=== PATIENT | male | born 1930 | race Caucasian/White ===

== ENCOUNTER 2017-10-23 09:34 | Day surgery (SDC) | payer MEDICARE, SELFPAY ==
[~2017-10-23] VITALS: Wt 90.0 kg
[~2017-10-23 09:34] MED LIST: ALBU3IS NEB; ALBU90OI INH; AMLO5 PO; ASPI81CH PO; AZIT250 PO; BENZ100A PO; BUDE6HFA INH; DULERA 200 MCG/13 GM INH; FISH1000 PO; FURO20 PO; HTN MED?; INHALER; LISI5; LUPRON DEPOT7.5 MG IM; MINO100 PO; MUPI2TC TOP; MUPIROCIN1 GM TOP; OMEP20ER PO; OMEPRAZOLE MAGN20 MG PO; PRED10 PO; Prednisone20 MG PO; Prednisone50 MG PO; Red Yeast Rice600 MG PO; TIOT18 INH; TRIA80TC TOP; Triamcinolone A15 G3 TOP; Ventolin Soln3 ML INH; XARELTO10 MG; XARELTO15 MG PO; XARELTO20 MG PO; Zithromax250 MG PO; [UNRECOGNIZED DRUG - REMARK]
--- NOTE | 2017-10-23 13:24 | NUR ---
REPORT RECEIVED FROM BETH MOODY. PT AWAKE, ALERT, SITTING UP IN RECLINER. NO RESPIRATORY DIFFICULTYNOTED. PT CONVERSING WITH STAFF AND . NO C/O PAIN OR DISCOMFORT. SIPPING ON WATER AT THIS TIME. DRESSING CDI, ICE PACK IN PLACE OVER PRESSURE DRESSING PER MD DIRECTION.
--- NOTE | 2017-10-23 15:23 | NUR ---
SUMMARY: PT AMBULATED IN HALLWAYS TO BATHROOM - TOLERATED ACTIVITY WELL. REVIEWED DISCHARGE INSTRUCTIONS WITH PATIENT AND , BOTH OF WHOM VERBALIZE UNDERSTANDING OF ALL INSTRUCTIONS GIVEN. IV D/C TIP INTACT. PRESSURE DRESSING REMOVED FROM CHEST WALL. NO BLEEDING OR SWELLING NOTED. EKG DONE AND ANTIBIOTIC INFUSED PER MD ORDERS. PT DISCHARGED HOME WITH TO DRIVE HIM.
[2017-11-06] MEDS ORDERED: Omeprazole20 M1 PO (15:05)
[2017-11-06] MEDS ORDERED: XARELTO15 MG PO (23:08)
[2017-11-07] MEDS ORDERED: AZIT250 PO (10:18)
[2017-11-07] MEDS ORDERED: BENZ100A PO (10:19)
[2017-11-07] MEDS ORDERED: PRED10 PO (10:20)
[2019-03-19] MEDS ORDERED: BREO ELLIPTA 21 EACH INH (12:27)
[2019-03-19] MEDS ORDERED: Zantac150 MG PO (12:58)
[2019-03-19] MEDS ORDERED: TAMS.4ER PO (13:01)
== END 2017-10-23 15:30 | disposition home or self-care (01) ==
LOC: MHTC 09:34 → SURS 09:39 → MHTC 09:39
PROC: 0JH606Z Insertion of Pacemaker, Dual Chamber into Chest Subcutaneous Tissue and Fascia, Open Approach (ICD-10-PCS; principal; 2017-10-23)
PROC: 0JPT0PZ Removal of Cardiac Rhythm Related Device from Trunk Subcutaneous Tissue and Fascia, Open Approach (ICD-10-PCS; principal; 2017-10-23)
DX: Z45.010 Encounter for checking and testing of cardiac pacemaker pulse generator [battery] (principal); I48.0 Paroxysmal atrial fibrillation; I35.0 Nonrheumatic aortic (valve) stenosis; I13.0 Hypertensive heart and chronic kidney disease with heart failure and stage 1 through stage 4 chronic kidney disease, or unspecified chronic kidney disease; I50.30 Unspecified diastolic (congestive) heart failure; N18.9 Chronic kidney disease, unspecified; I77.819 Aortic ectasia, unspecified site; I45.10 Unspecified right bundle-branch block; E78.5 Hyperlipidemia, unspecified; J44.9 Chronic obstructive pulmonary disease, unspecified; K21.9 Gastro-esophageal reflux disease without esophagitis; Z86.73 Personal history of transient ischemic attack (TIA), and cerebral infarction without residual deficits; Z79.01 Long term (current) use of anticoagulants; Z79.899 Other long term (current) drug therapy; Z87.891 Personal history of nicotine dependence; Z86.718 Personal history of other venous thrombosis and embolism; Z86.711 Personal history of pulmonary embolism; Z85.46 Personal history of malignant neoplasm of prostate; Z88.5 Allergy status to narcotic agent; I25.10 Atherosclerotic heart disease of native coronary artery without angina pectoris
CPT/HCPCS: 33228; 93005; 93010; 94640; 99152; 99153; C1785; J0690; J1644; J2250; J3010; J7030; J7040

== ENCOUNTER → 2017-12-19 | Outpatient (CLI) | payer MEDICARE, SELFPAY ==
[~2017-12-19] MED LIST changes: +ALBU3IS INH; -ALBU3IS NEB; +Omeprazole20 M1 PO; +TAMS.4ER PO
[2017-12-19 20:09] LABS: Prostate Specific Antigen 0.064 ng/mL (0.000-4.000)
== END | disposition home or self-care (01) ==
LOC: OLS 16:28
PROVIDERS: Urology
DX: C61 Malignant neoplasm of prostate (principal)
CPT/HCPCS: 36415; 84153

== ENCOUNTER → 2018-05-20 | Outpatient (CLI) | payer MEDICARE, SELFPAY ==
[2018-05-20 17:48] LABS: BASOPHILS ABSOLUTE AUTO 0.02 K/mm3 (0.00-0.23); BASOPHILS PERCENT AUTO 0 % (0-2); EOSINOPHILS ABSOLUTE AUTO 0.36 K/mm3 (0.00-0.68); EOSINOPHILS PERCENT AUTO 4 % (0-6); Hematocrit 41.8 % (37.0-53.0); Hemoglobin 13.5 g/dL (13.5-17.5); IMMATURE GRAN ABSOLUTE AUTO 0.04 K/mm3 (0.00-0.10); IMMATURE GRAN PERCENT AUTO 0 % (0-1); LYMPHOCYTES ABSOLUTE AUTO 2.29 K/mm3 (0.84-5.20); LYMPHOCYTES PERCENT AUTO 23 % (21-46); MONOCYTES ABSOLUTE AUTO 0.78 K/mm3 (0.16-1.47); MONOCYTES PERCENT AUTO 8 % (4-13); Mean Corpuscular HGB 29.7 pg (26.0-34.0); Mean Corpuscular HGB Conc 32.3 g/dL (31.5-36.5); Mean Corpuscular Volume 92 fL (80-100); Mean Platelet Volume 11.3 fL (9.1-12.4); NEUTROPHILS ABSOLUTE AUTO 6.49 K/mm3 (1.96-9.15); NEUTROPHILS PERCENT AUTO 65 % (41-73); Platelet Count 258 K/mm3 (150-400); RDW Coefficient Variation 12.9 % (11.7-14.2); RDW Standard Deviation 43.4 fL (35.1-46.3); Red Blood Cell Count 4.55 M/mm3 (4.30-5.90); White Blood Cell Count 9.98 K/mm3 (4.00-11.30)
[2018-05-20 18:16] LABS: Magnesium, Blood 2.5 mg/dL (1.6-2.4)
[2018-05-20 18:21] LABS: Albumin, Blood 3.7 g/dL (3.4-5.0); Albumin/Globulin Ratio 1.3 (0.8-1.8); Bilirubin, Total 1.1 mg/dL (0.1-1.0); Bun/Creatinine Ratio 18.4 (12.0-20.0); Calcium, Blood 9.2 mg/dL (8.5-10.1); Creatinine, Blood 1.63 mg/dL (0.60-1.20); Globulin, Blood 2.9 g/dL (2.2-4.0); Potassium, Blood 4.1 mmol/L (3.5-5.5); Total Protein, Blood 6.6 g/dL (6.4-8.2)
== END ==
LOC: LAB 08:52 → LAB SHORT 08:52
PROVIDERS: Nurse Practitioner Adult Health
DX: I35.0 Nonrheumatic aortic (valve) stenosis (principal); I10 Essential (primary) hypertension
CPT/HCPCS: 80053; 83735; 83880; 85025

== ENCOUNTER 2018-07-15 08:12 | Observation (INO) | payer MEDICARE, SELFPAY ==
[~2018-07-15] VITALS: Ht 160 cm; Wt 90.2 kg
[2018-07-15 09:44] LABS: Albumin, Blood 3.1 g/dL (3.4-5.0); Albumin/Globulin Ratio 0.9 (0.8-1.8); Bun/Creatinine Ratio 13.9 (12.0-20.0); Calcium, Blood 9.3 mg/dL (8.5-10.1); Creatinine, Blood 1.66 mg/dL (0.60-1.20); Globulin, Blood 3.4 g/dL (2.2-4.0); Potassium, Blood 3.8 mmol/L (3.5-5.5); Total Protein, Blood 6.5 g/dL (6.4-8.2)
[2018-07-15 09:55] LABS: BASOPHILS ABSOLUTE AUTO 0.03 K/mm3 (0.00-0.23); BASOPHILS PERCENT AUTO 0 % (0-2); EOSINOPHILS ABSOLUTE AUTO 0.06 K/mm3 (0.00-0.68); EOSINOPHILS PERCENT AUTO 1 % (0-6); Hematocrit 37.8 % (37.0-53.0); Hemoglobin 12.6 g/dL (13.5-17.5); IMMATURE GRAN ABSOLUTE AUTO 0.05 K/mm3 (0.00-0.10); IMMATURE GRAN PERCENT AUTO 0 % (0-1); LYMPHOCYTES ABSOLUTE AUTO 1.43 K/mm3 (0.84-5.20); LYMPHOCYTES PERCENT AUTO 13 % (21-46); MONOCYTES ABSOLUTE AUTO 0.77 K/mm3 (0.16-1.47); MONOCYTES PERCENT AUTO 7 % (4-13); Mean Corpuscular HGB 29.3 pg (26.0-34.0); Mean Corpuscular HGB Conc 33.3 g/dL (31.5-36.5); Mean Corpuscular Volume 88 fL (80-100); Mean Platelet Volume 10.3 fL (9.1-12.4); NEUTROPHILS PERCENT AUTO 79 % (41-73); Platelet Count 213 K/mm3 (150-400); RDW Coefficient Variation 12.9 % (11.7-14.2); RDW Standard Deviation 41.1 fL (35.1-46.3); White Blood Cell Count 11.14 K/mm3 (4.00-11.30)
[2018-07-15 11:21] LABS: Source, Urine Clean Catch
[2018-07-15 11:23] LABS: Bilirubin, Urine Neg (Neg); Blood, Urine Neg (Neg); Glucose Qualitative, Urine Neg (Neg); Ketones, Urine Neg (Neg); Leukocyte Esterase, Urine Neg (Neg); Nitrite, Urine Neg (Neg); Protein, Urine Neg (Neg); Urobilinogen, Urine NORM (Normal)
[2018-07-15 12:10] LABS: Appearance, Urine Clear (Clear); Color, Urine Yellow (P-Yellow)
[2018-07-16 05:30] LABS: BASOPHILS ABSOLUTE AUTO 0.03 K/mm3 (0.00-0.23); BASOPHILS PERCENT AUTO 0 % (0-2); EOSINOPHILS ABSOLUTE AUTO 0.37 K/mm3 (0.00-0.68); EOSINOPHILS PERCENT AUTO 4 % (0-6); Hematocrit 36.4 % (37.0-53.0); Hemoglobin 11.8 g/dL (13.5-17.5); IMMATURE GRAN ABSOLUTE AUTO 0.02 K/mm3 (0.00-0.10); IMMATURE GRAN PERCENT AUTO 0 % (0-1); LYMPHOCYTES ABSOLUTE AUTO 1.71 K/mm3 (0.84-5.20); LYMPHOCYTES PERCENT AUTO 19 % (21-46); MONOCYTES ABSOLUTE AUTO 0.83 K/mm3 (0.16-1.47); MONOCYTES PERCENT AUTO 9 % (4-13); Mean Corpuscular HGB 29.1 pg (26.0-34.0); Mean Corpuscular HGB Conc 32.4 g/dL (31.5-36.5); Mean Corpuscular Volume 90 fL (80-100); Mean Platelet Volume 9.8 fL (9.1-12.4); NEUTROPHILS ABSOLUTE AUTO 6.03 K/mm3 (1.96-9.15); NEUTROPHILS PERCENT AUTO 67 % (41-73); Platelet Count 236 K/mm3 (150-400); RDW Coefficient Variation 12.9 % (11.7-14.2); RDW Standard Deviation 42.8 fL (35.1-46.3); Red Blood Cell Count 4.05 M/mm3 (4.30-5.90); White Blood Cell Count 8.99 K/mm3 (4.00-11.30)
[2018-07-16 05:52] LABS: Bilirubin, Total 1.5 mg/dL (0.1-1.0); Bun/Creatinine Ratio 14.2 (12.0-20.0); Calcium, Blood 8.4 mg/dL (8.5-10.1); Creatinine, Blood 1.83 mg/dL (0.60-1.20); Globulin, Blood 3.1 g/dL (2.2-4.0); Potassium, Blood 3.7 mmol/L (3.5-5.5); Total Protein, Blood 6.1 g/dL (6.4-8.2)
== END 2018-07-16 11:26 | disposition home or self-care (01) ==
LOC: ER 08:12 → MEDS 08:13 → ENPENDDIS 07-16 10:27 → MEDS 07-16 11:26
PROVIDERS: Emergency Medicine; Hospitalist
DX: R10.9 Unspecified abdominal pain (principal); I12.9 Hypertensive chronic kidney disease with stage 1 through stage 4 chronic kidney disease, or unspecified chronic kidney disease; N18.3 Chronic kidney disease, stage 3 (moderate); I48.91 Unspecified atrial fibrillation; J44.9 Chronic obstructive pulmonary disease, unspecified; E78.5 Hyperlipidemia, unspecified; I35.0 Nonrheumatic aortic (valve) stenosis; K21.9 Gastro-esophageal reflux disease without esophagitis; Z95.0 Presence of cardiac pacemaker; Z85.46 Personal history of malignant neoplasm of prostate; Z86.718 Personal history of other venous thrombosis and embolism; Z86.711 Personal history of pulmonary embolism; Z79.01 Long term (current) use of anticoagulants; Z86.73 Personal history of transient ischemic attack (TIA), and cerebral infarction without residual deficits; Z88.5 Allergy status to narcotic agent; Z79.899 Other long term (current) drug therapy; Z87.891 Personal history of nicotine dependence
CPT/HCPCS: 36415; 74177; 80053; 81003; 83690; 85025; 93005; 93010; 96361; 96374; 96375; 99285-25; G0378; J2405; J3010; J7030; Q9967

== ENCOUNTER 2018-07-17 21:11 | Inpatient (IN) | payer MEDICARE, SELFPAY ==
[~2018-07-17] VITALS: Ht 167.6 cm; Wt 96.2 kg
[2018-07-17 21:48] LABS: BASOPHILS ABSOLUTE AUTO 0.02 K/mm3 (0.00-0.23); BASOPHILS PERCENT AUTO 0 % (0-2); EOSINOPHILS ABSOLUTE AUTO 0.13 K/mm3 (0.00-0.68); EOSINOPHILS PERCENT AUTO 1 % (0-6); Hematocrit 38.1 % (37.0-53.0); Hemoglobin 12.5 g/dL (13.5-17.5); IMMATURE GRAN ABSOLUTE AUTO 0.04 K/mm3 (0.00-0.10); IMMATURE GRAN PERCENT AUTO 0 % (0-1); LYMPHOCYTES ABSOLUTE AUTO 0.89 K/mm3 (0.84-5.20); LYMPHOCYTES PERCENT AUTO 9 % (21-46); MONOCYTES ABSOLUTE AUTO 0.75 K/mm3 (0.16-1.47); MONOCYTES PERCENT AUTO 7 % (4-13); Mean Corpuscular HGB Conc 32.8 g/dL (31.5-36.5); Mean Corpuscular Volume 91 fL (80-100); Mean Platelet Volume 9.7 fL (9.1-12.4); NEUTROPHILS ABSOLUTE AUTO 8.47 K/mm3 (1.96-9.15); NEUTROPHILS PERCENT AUTO 82 % (41-73); Platelet Count 238 K/mm3 (150-400); RDW Coefficient Variation 12.8 % (11.7-14.2); RDW Standard Deviation 43.1 fL (35.1-46.3); Red Blood Cell Count 4.17 M/mm3 (4.30-5.90)
[2018-07-17 22:06] LABS: Source, Urine Catheter
[2018-07-17 22:11] LABS: Bilirubin, Urine Neg (Neg); Blood, Urine 1+ (Neg); Glucose Qualitative, Urine Neg (Neg); Ketones, Urine Neg (Neg); Leukocyte Esterase, Urine Neg (Neg); Nitrite, Urine Neg (Neg); Protein, Urine Neg (Neg); Specific Gravity, Urine 1.015 (1.003-1.022); Urobilinogen, Urine NORM (Normal)
[2018-07-17 22:18] LABS: Appearance, Urine Clear (Clear); Color, Urine Yellow (P-Yellow)
[2018-07-17 22:21] LABS: Bacteria Not Seen /hpf; Red Blood Cells, Urine 0-2 /hpf (0-2); Squamous Epithelial Cells Few /hpf (Few); White Blood Cells, Urine Rare /hpf (0-5)
[2018-07-17 22:28] LABS: Albumin, Blood 3.3 g/dL (3.4-5.0); Albumin/Globulin Ratio 0.9 (0.8-1.8); Bilirubin, Total 0.8 mg/dL (0.1-1.0); Calcium, Blood 8.1 mg/dL (8.5-10.1); Creatinine, Blood 1.77 mg/dL (0.60-1.20); Globulin, Blood 3.6 g/dL (2.2-4.0); Potassium, Blood 3.8 mmol/L (3.5-5.5); Total Protein, Blood 6.9 g/dL (6.4-8.2); Troponin I 0.112 ng/mL (0.000-0.040)
[2018-07-17 23:12] LABS: Magnesium, Blood 2.1 mg/dL (1.6-2.4)
[2018-07-18 03:38] LABS: Hematocrit 32.9 % (37.0-53.0); Hemoglobin 10.8 g/dL (13.5-17.5); Mean Corpuscular HGB 29.9 pg (26.0-34.0); Mean Corpuscular HGB Conc 32.8 g/dL (31.5-36.5); Mean Corpuscular Volume 91 fL (80-100); Mean Platelet Volume 9.5 fL (9.1-12.4); Platelet Count 212 K/mm3 (150-400); RDW Coefficient Variation 12.9 % (11.7-14.2); RDW Standard Deviation 42.8 fL (35.1-46.3); Red Blood Cell Count 3.61 M/mm3 (4.30-5.90); White Blood Cell Count 9.55 K/mm3 (4.00-11.30)
[2018-07-18 04:00] LABS: Troponin I 0.267 ng/mL (0.000-0.040)
[2018-07-18 05:12] LABS: Albumin, Blood 2.7 g/dL (3.4-5.0); Albumin/Globulin Ratio 0.8 (0.8-1.8); Bilirubin, Total 0.9 mg/dL (0.1-1.0); Bun/Creatinine Ratio 14.3 (12.0-20.0); Calcium, Blood 7.5 mg/dL (8.5-10.1); Creatinine, Blood 1.68 mg/dL (0.60-1.20); Globulin, Blood 3.2 g/dL (2.2-4.0); Potassium, Blood 3.5 mmol/L (3.5-5.5); Total Protein, Blood 5.9 g/dL (6.4-8.2)
[2018-07-20 03:57] LABS: Hematocrit 36.9 % (37.0-53.0); Hemoglobin 12.1 g/dL (13.5-17.5); Mean Corpuscular HGB Conc 32.8 g/dL (31.5-36.5); Mean Corpuscular Volume 91 fL (80-100); Mean Platelet Volume 9.3 fL (9.1-12.4); Platelet Count 234 K/mm3 (150-400); RDW Coefficient Variation 13.2 % (11.7-14.2); RDW Standard Deviation 44.9 fL (35.1-46.3); Red Blood Cell Count 4.04 M/mm3 (4.30-5.90); White Blood Cell Count 13.01 K/mm3 (4.00-11.30)
[2018-07-20 04:11] LABS: Bun/Creatinine Ratio 15.2 (12.0-20.0); Calcium, Blood 8.2 mg/dL (8.5-10.1); Creatinine, Blood 1.65 mg/dL (0.60-1.20); Potassium, Blood 3.9 mmol/L (3.5-5.5)
[2018-07-20 11:26] LABS: Source, Urine Catheter
[2018-07-20 11:33] LABS: Bilirubin, Urine Neg (Neg); Blood, Urine 4+ (Neg); Glucose Qualitative, Urine Neg (Neg); Ketones, Urine Neg (Neg); Leukocyte Esterase, Urine 1+ (Neg); Nitrite, Urine Neg (Neg); Protein, Urine 2+ (Neg); Urobilinogen, Urine 1+ (Normal)
[2018-07-20 11:41] LABS: Appearance, Urine Clear (Clear); Color, Urine Yellow (P-Yellow)
[2018-07-20 11:44] LABS: White Blood Cells, Urine 0-2 /hpf (0-5)
[2018-07-20 11:46] LABS: Amorphous Heavy (0-Heavy); Bacteria Not Seen /hpf; Red Blood Cells, Urine 0-2 /hpf (0-2); Squamous Epithelial Cells Not Seen /hpf (Few)
[2018-07-21 04:16] LABS: BASOPHILS ABSOLUTE AUTO 0.03 K/mm3 (0.00-0.23); BASOPHILS PERCENT AUTO 0 % (0-2); EOSINOPHILS ABSOLUTE AUTO 0.26 K/mm3 (0.00-0.68); EOSINOPHILS PERCENT AUTO 2 % (0-6); Hematocrit 34.1 % (37.0-53.0); Hemoglobin 11.3 g/dL (13.5-17.5); IMMATURE GRAN ABSOLUTE AUTO 0.07 K/mm3 (0.00-0.10); IMMATURE GRAN PERCENT AUTO 1 % (0-1); LYMPHOCYTES PERCENT AUTO 11 % (21-46); MONOCYTES ABSOLUTE AUTO 1.11 K/mm3 (0.16-1.47); MONOCYTES PERCENT AUTO 8 % (4-13); Mean Corpuscular HGB 30.4 pg (26.0-34.0); Mean Corpuscular HGB Conc 33.1 g/dL (31.5-36.5); Mean Corpuscular Volume 92 fL (80-100); Mean Platelet Volume 9.9 fL (9.1-12.4); NEUTROPHILS PERCENT AUTO 79 % (41-73); Platelet Count 214 K/mm3 (150-400); RDW Coefficient Variation 13.2 % (11.7-14.2); Red Blood Cell Count 3.72 M/mm3 (4.30-5.90); White Blood Cell Count 14.37 K/mm3 (4.00-11.30)
[2018-07-21 04:37] LABS: Albumin, Blood 2.6 g/dL (3.4-5.0); Albumin/Globulin Ratio 0.6 (0.8-1.8); Bilirubin, Total 1.1 mg/dL (0.1-1.0); Bun/Creatinine Ratio 16.6 (12.0-20.0); Calcium, Blood 8.2 mg/dL (8.5-10.1); Creatinine, Blood 1.63 mg/dL (0.60-1.20); Potassium, Blood 4.1 mmol/L (3.5-5.5); Total Protein, Blood 6.6 g/dL (6.4-8.2)
[2018-07-22 04:22] LABS: BASOPHILS ABSOLUTE AUTO 0.03 K/mm3 (0.00-0.23); BASOPHILS PERCENT AUTO 0 % (0-2); EOSINOPHILS ABSOLUTE AUTO 0.46 K/mm3 (0.00-0.68); EOSINOPHILS PERCENT AUTO 3 % (0-6); Hematocrit 35.7 % (37.0-53.0); Hemoglobin 12.1 g/dL (13.5-17.5); IMMATURE GRAN ABSOLUTE AUTO 0.12 K/mm3 (0.00-0.10); IMMATURE GRAN PERCENT AUTO 1 % (0-1); LYMPHOCYTES ABSOLUTE AUTO 1.52 K/mm3 (0.84-5.20); LYMPHOCYTES PERCENT AUTO 10 % (21-46); MONOCYTES ABSOLUTE AUTO 1.13 K/mm3 (0.16-1.47); MONOCYTES PERCENT AUTO 8 % (4-13); Mean Corpuscular HGB Conc 33.9 g/dL (31.5-36.5); Mean Corpuscular Volume 88 fL (80-100); Mean Platelet Volume 10.2 fL (9.1-12.4); NEUTROPHILS ABSOLUTE AUTO 11.79 K/mm3 (1.96-9.15); NEUTROPHILS PERCENT AUTO 78 % (41-73); Platelet Count 207 K/mm3 (150-400); RDW Coefficient Variation 12.9 % (11.7-14.2); RDW Standard Deviation 42.3 fL (35.1-46.3); Red Blood Cell Count 4.04 M/mm3 (4.30-5.90); White Blood Cell Count 15.05 K/mm3 (4.00-11.30)
[2018-07-22 04:29] LABS: Bun/Creatinine Ratio 16.6 (12.0-20.0); Creatinine, Blood 1.51 mg/dL (0.60-1.20); Potassium, Blood 3.9 mmol/L (3.5-5.5)
[2018-07-23 05:14] LABS: Albumin, Blood 2.3 g/dL (3.4-5.0); Albumin/Globulin Ratio 0.5 (0.8-1.8); Bilirubin, Total 0.5 mg/dL (0.1-1.0); Calcium, Blood 8.1 mg/dL (8.5-10.1); Creatinine, Blood 1.35 mg/dL (0.60-1.20); Globulin, Blood 4.2 g/dL (2.2-4.0); Potassium, Blood 3.7 mmol/L (3.5-5.5); Total Protein, Blood 6.5 g/dL (6.4-8.2)
[2018-07-23 05:25] LABS: BASOPHILS ABSOLUTE AUTO 0.04 K/mm3 (0.00-0.23); BASOPHILS PERCENT AUTO 0 % (0-2); EOSINOPHILS ABSOLUTE AUTO 0.55 K/mm3 (0.00-0.68); EOSINOPHILS PERCENT AUTO 5 % (0-6); Hemoglobin 11.8 g/dL (13.5-17.5); IMMATURE GRAN ABSOLUTE AUTO 0.07 K/mm3 (0.00-0.10); IMMATURE GRAN PERCENT AUTO 1 % (0-1); LYMPHOCYTES ABSOLUTE AUTO 1.42 K/mm3 (0.84-5.20); LYMPHOCYTES PERCENT AUTO 12 % (21-46); MONOCYTES ABSOLUTE AUTO 1.14 K/mm3 (0.16-1.47); MONOCYTES PERCENT AUTO 9 % (4-13); Mean Corpuscular HGB 29.1 pg (26.0-34.0); Mean Corpuscular HGB Conc 32.8 g/dL (31.5-36.5); Mean Corpuscular Volume 89 fL (80-100); Mean Platelet Volume 9.7 fL (9.1-12.4); NEUTROPHILS ABSOLUTE AUTO 8.95 K/mm3 (1.96-9.15); NEUTROPHILS PERCENT AUTO 74 % (41-73); Platelet Count 303 K/mm3 (150-400); RDW Coefficient Variation 12.9 % (11.7-14.2); RDW Standard Deviation 42.3 fL (35.1-46.3); Red Blood Cell Count 4.06 M/mm3 (4.30-5.90); White Blood Cell Count 12.17 K/mm3 (4.00-11.30)
[2018-07-23 09:30] LABS: Bicarbonate Venous 23.2 mmol/L (24.0-30.0); PCO2 Venous 41.2 mmHg (38-42); PO2 Venous 44.4 mmHg (38-42); pH Blood Venous 7.38 (7.34-7.37)
[2018-07-25 00:12] LABS: Source, Urine Catheter
[2018-07-25 00:27] LABS: Bilirubin, Urine Neg (Neg); Blood, Urine 3+ (Neg); Glucose Qualitative, Urine Neg (Neg); Ketones, Urine Neg (Neg); Leukocyte Esterase, Urine Neg (Neg); Nitrite, Urine Neg (Neg); Protein, Urine 1+ (Neg); Specific Gravity, Urine 1.005 (1.003-1.022); Urobilinogen, Urine NORM (Normal)
[2018-07-25 00:48] LABS: Appearance, Urine Clear (Clear); Bacteria Few /hpf; Color, Urine Yellow (P-Yellow); Squamous Epithelial Cells Not Seen /hpf (Few); White Blood Cells, Urine 0-2 /hpf (0-5)
[2018-07-26] MEDS ORDERED: OMEPRAZOLE MAGN20 MG PO (09:22)
== END 2018-07-26 12:57 | DRG 853 ==
LOC: ER 21:11 → ICUW 23:35 → PCU 23:35 → MEDS 23:35 → ICUE 23:35 → PCU 07-18 00:04 → ICUE 07-18 00:07 → PCU 07-18 13:37 → SURS 07-20 11:46 → MEDS 07-22 11:42 → ENPENDDIS 07-26 09:05 → MEDS 07-26 12:57
PROVIDERS: Emergency Medicine; Internal Medicine; Nurse Practitioner Acute Care; Surgery
PROC: 4B02XSZ Measurement of Cardiac Pacemaker, External Approach (ICD-10-PCS; 2018-07-17)
PROC: BF101ZZ Fluoroscopy of Bile Ducts using Low Osmolar Contrast (ICD-10-PCS; 2018-07-19)
PROC: 0FT44ZZ Resection of Gallbladder, Percutaneous Endoscopic Approach (ICD-10-PCS; principal; 2018-07-19 14:00)
DX: A41.9 Sepsis, unspecified organism (principal); G93.41 Metabolic encephalopathy; I21.A1 Myocardial infarction type 2; K82.2 Perforation of gallbladder; I47.2 Ventricular tachycardia; E87.2 Acidosis; K80.01 Calculus of gallbladder with acute cholecystitis with obstruction; J98.11 Atelectasis; R65.20 Severe sepsis without septic shock; J44.9 Chronic obstructive pulmonary disease, unspecified; I48.0 Paroxysmal atrial fibrillation; Z99.81 Dependence on supplemental oxygen; N18.3 Chronic kidney disease, stage 3 (moderate); K21.9 Gastro-esophageal reflux disease without esophagitis; E78.5 Hyperlipidemia, unspecified; N40.1 Benign prostatic hyperplasia with lower urinary tract symptoms; R33.8 Other retention of urine; I12.9 Hypertensive chronic kidney disease with stage 1 through stage 4 chronic kidney disease, or unspecified chronic kidney disease; R53.1 Weakness; G47.30 Sleep apnea, unspecified; Z79.899 Other long term (current) drug therapy; Z95.0 Presence of cardiac pacemaker; Z87.891 Personal history of nicotine dependence; Z86.718 Personal history of other venous thrombosis and embolism; Z86.711 Personal history of pulmonary embolism; Z79.01 Long term (current) use of anticoagulants; Z85.46 Personal history of malignant neoplasm of prostate; Z88.5 Allergy status to narcotic agent; Z86.73 Personal history of transient ischemic attack (TIA), and cerebral infarction without residual deficits
CPT/HCPCS: 36415; 51702; 70450; 71045; 74177; 74300; 76705; 80048; 80053; 81001; 81003; 82803; 83605; 83690; 83735; 83880; 84145; 84484; 85025; 85027; 87040; 87086; 87338; 88304; 93005; 93010; 94640; 94760; 94762; 96361; 96365; 96366; 96368; 96374; 96375; 97110; 97116; 97162; 97166; 97530; 97535; 99285-25; C1729; G0378; G0515; G8978; G8979; G8987; G8988; J0360; J0696; J1940; J2370; J2405; J2543; J2710; J3010; J7030; J7120; Q9967

== ENCOUNTER 2018-12-03 19:20 | Observation (INO) | payer MEDICARE, SELFPAY ==
[~2018-12-03] VITALS: Ht 167.6 cm; Wt 88.0 kg
[2018-12-03 21:10] LABS: Calcium, Ionized (POC) 1.16 mmol/L (1.10-1.46); Chloride (POC) 104 mmol/L (98-108); Creatinine (POC) 1.6 mg/dL (0.8-1.3); Glucose (ISTAT POC) 110 mg/dL (70-99); Hemoglobin (POC) 15.6 g/dL (13.5-17.5); Potassium (POC) 4.3 mmol/L (3.5-5.5); Sodium (POC) 139 mmol/L (135-148); Total CO2 (POC) 21 mmol/L (21-32)
[2018-12-03 21:15] LABS: BASOPHILS ABSOLUTE AUTO 0.07 K/mm3 (0.00-0.23); BASOPHILS PERCENT AUTO 0 % (0-2); EOSINOPHILS ABSOLUTE AUTO 0.21 K/mm3 (0.00-0.68); EOSINOPHILS PERCENT AUTO 1 % (0-6); Hematocrit 46.2 % (37.0-53.0); Hemoglobin 14.7 g/dL (13.5-17.5); IMMATURE GRAN ABSOLUTE AUTO 0.23 K/mm3 (0.00-0.10); IMMATURE GRAN PERCENT AUTO 1 % (0-1); LYMPHOCYTES ABSOLUTE AUTO 4.17 K/mm3 (0.84-5.20); LYMPHOCYTES PERCENT AUTO 23 % (21-46); MONOCYTES ABSOLUTE AUTO 1.76 K/mm3 (0.16-1.47); MONOCYTES PERCENT AUTO 10 % (4-13); Mean Corpuscular HGB 28.6 pg (26.0-34.0); Mean Corpuscular HGB Conc 31.8 g/dL (31.5-36.5); Mean Corpuscular Volume 90 fL (80-100); Mean Platelet Volume 9.9 fL (9.1-12.4); NEUTROPHILS ABSOLUTE AUTO 11.86 K/mm3 (1.96-9.15); NEUTROPHILS PERCENT AUTO 65 % (41-73); Platelet Count 328 K/mm3 (150-400); RDW Coefficient Variation 15.4 % (11.7-14.2); Red Blood Cell Count 5.14 M/mm3 (4.30-5.90)
[2018-12-03 21:50] LABS: Albumin, Blood 3.4 g/dL (3.4-5.0); Albumin/Globulin Ratio 0.8 (0.8-1.8); Bilirubin, Total 0.9 mg/dL (0.1-1.0); Bun/Creatinine Ratio 16.5 (12.0-20.0); Calcium, Blood 8.9 mg/dL (8.5-10.1); Creatinine, Blood 1.58 mg/dL (0.60-1.20); Globulin, Blood 4.2 g/dL (2.2-4.0); Potassium, Blood 5.4 mmol/L (3.5-5.5); Total Protein, Blood 7.6 g/dL (6.4-8.2); Troponin I 0.163 ng/mL (0.000-0.040)
[2018-12-03 22:20] LABS: Source, Urine Clean Catch
[2018-12-03 22:22] LABS: Bilirubin, Urine Neg (Neg); Blood, Urine Neg (Neg); Glucose Qualitative, Urine Neg (Neg); Ketones, Urine Neg (Neg); Leukocyte Esterase, Urine Neg (Neg); Nitrite, Urine Neg (Neg); Protein, Urine Neg (Neg); Urobilinogen, Urine NORM (Normal)
[2018-12-03 22:30] LABS: Appearance, Urine Clear (Clear); Color, Urine Yellow (P-Yellow)
--- NOTE | 2018-12-04 02:25 | NUR ---
ASSUMED CARE OF PATIENT AT APPROXIMATELY 0030 FROM [facility] ED RN. PATIENT ARRIVED TO UNIT VIA STRETCHER; TRANSFER VIA SLIDE SHEET FROM ED TO PCU STRETCHER. PATIENT DENIES CP/PRESSURE, PAIN ELSEWHERE, NUMBNESS, TINGLING, DIZZINESS AND NAUSEA. PATIENT WEAK. ST 1ST DEGREE BLOCK ON TELE; OXYGEN SATURATION ABOVE 90% ON ROOM AIR. PATIENT CONFUSED; UNABLE TO STATE DATE BUT ABLE TO STATE LOCATION AND NAME. PATIENT ATTEMPTED TO PULL CATHETER OUT ONCE. INCONTINENT OF SMEARS TWICE SINCE ARRIVAL AND AMBULATED TO [facility] WITH TWO ASSIST. PATIENT UNABLE TO GIVE PREVIOUS MEDICAL HISTORY OR MEDICATIONS BUT ABLE TO STATE HE HAD THE FLU SHOT A MONTH AGO. 2PIV S/L. PATIENT CURRENTLY SLEEPING IN BED; CALL LIGHT IN REACH; BED IN LOWEST POSISTION; BED ALARM ON; WILL CONTINUE TO MONITOR AND ASSESS UNTIL END OF SHIFT.
[2018-12-04 04:07] LABS: Hematocrit 43.2 % (37.0-53.0); Hemoglobin 13.5 g/dL (13.5-17.5); Mean Corpuscular HGB Conc 31.3 g/dL (31.5-36.5); Mean Corpuscular Volume 89 fL (80-100); Mean Platelet Volume 9.8 fL (9.1-12.4); Platelet Count 285 K/mm3 (150-400); RDW Coefficient Variation 15.4 % (11.7-14.2); RDW Standard Deviation 49.6 fL (35.1-46.3); Red Blood Cell Count 4.83 M/mm3 (4.30-5.90); White Blood Cell Count 15.06 K/mm3 (4.00-11.30)
[2018-12-04 04:46] LABS: Bun/Creatinine Ratio 15.6 (12.0-20.0); Calcium, Blood 8.3 mg/dL (8.5-10.1); Creatinine, Blood 1.41 mg/dL (0.60-1.20); Potassium, Blood 3.6 mmol/L (3.5-5.5)
--- NOTE | 2018-12-04 05:47 | NUR ---
RAPID RESPONSE TEAM: AT APPROXIMATELY 0447 PATIENT WAS ATTEMPTING TO AMBULATE INDEPENDENTLY TO THE BATHROOM; BED ALARM SOUNDED; THIS RN RESPONDED; PATIENT REPORTED HE NEEDED TO HAVE A BOWEL MOVEMENT. PATIENT AMBULATED A FEW STEPS TO THE BEDSIDE COMMODE; WITHIN A MINUTE OF PATIENT SITTING ON COMMODE HE WAS BEARING DOWN AND PUSHING ON THE BEDSIDE TABLE; THIS RN EDUCATED PATIENT ON BEARING DOWN; PATIENT CONTINUED TO BEAR DOWN AND SHORTLY AFTER LEANED BACK AGAINST THE COMMODE AND APPEARED TO HAVE PASSED OUT; NO CHANGES ON TELE; RADIAL PULSES PALPABLE. PATIENT WAS NOT RESPONDING; THIS RN CALLED PCU CN RN [place] Tristan, WHO VISUALIZED PATIENT AND DIRECTOR OF ENTERTAINMENT WAS CALLED. DIRECTOR OF ENTERTAINMENT ARRIVED; BLOOD PRESSURE SITTING ON COMMODE DROPPED FROM 78/54 TO 57/39 WITHIN SIX MINUTES; 2LPM VIA NC APPLIED FOR DESATURATION TO 87%; PATIENT HAD LARGE BM; DR. CESAR CALLED FOR EYES ON PATIENT. PATIENT WAS TRANFERRED BACK TO BED WITH LIFT AND 4 STAFF. PATIENT MORE AWAKE AND STATED "NO" TO ONE QUESTION. SBP 123 ONCE BACK IN BED; NO CHANGES ON TELE. PATIENT'S COLOR NOTED TO BE IMPROVED. DR. CESAR ARRIVED ORDERED 250ML BOLUS OF NS; STAT EKG; NO CHANGES ON EKG; CXR 1V; NEURO CHECKS AND VS MORE OFTEN; STAY PCU STATUS. PATIENT STATED "NO" WHEN ASKED IF HE WAS HAVING ANY CP OR PAIN ELSEWHERE AND REQUESTED HIS . RAPID RESPONSE ENDED AT 0525. PATIENT IS CURRENTLY SLEEPING IN BED; BACK TO BASELINE; STATES HE IS STILL IN HOSPITAL AND ALIVE; UNABLE TO STATE EVENTS. BED ALARM ON; BED IN LOWEST POSISTION WILL CONTINUE TO MONITOR AND ASSESS UNTIL END OF SHIFT.
--- NOTE | 2018-12-04 10:55 | NUR ---
Echocardiogram completed.
--- NOTE | 2018-12-04 15:52 | NUR ---
Patient Care Authorization Patient gave consent for this student nurse to provide care tomorrow.
--- NOTE | 2018-12-04 19:38 | NUR ---
END OF SHIFT PT HAS HAD NO CHANGES TO THE ASSESSMENT, VSS, PT HAS HAD NO SYCOPAL EPISODES,
--- NOTE | 2018-12-04 20:32 | NUR ---
PM NOTE. ASSUMED CARE OF PT APROX 1900, PT IS ALERT AND ORIENTEDx4 AT THIS TIME, PLEASENT AND COOPERATIVE WITH CARE, THIS RN WAS TOLD IN REPORT THAT PT HAS MOMENTS OF CONFUSION, BED ALARM IN ON. TELE INTACT, NSR W/FIRST DEGREE IN THE 70'S PER INSPECTING AND TESTING LEAD HAND, PT HAS A PACER, NO PACER SPIKES SEEN ON TELE RECENTLY. PT'S BP 155/89, 1+ PITTING EDEMA NOTED TO THE PT'S BLE. L/S CLEAR T/O. PT'S HOANG IS INTACT, DRAINGIN TO GRAVITY CRANBERRY/RED URINE, PT STATES THAT HE HAS NOT HAD BLOOD IN HIS URINE AT HOME. HOANG WAS PLACED IN THE ED ON ADMIT. CALL LIGHT IN REACH, BED IS LOCKED AND LOW, WILL CONTINUE TO MONITOR.
[2018-12-05 03:58] LABS: Hematocrit 38.1 % (37.0-53.0); Hemoglobin 12.1 g/dL (13.5-17.5); Mean Corpuscular HGB Conc 31.8 g/dL (31.5-36.5); Mean Corpuscular Volume 88 fL (80-100); Mean Platelet Volume 9.8 fL (9.1-12.4); Platelet Count 231 K/mm3 (150-400); RDW Coefficient Variation 15.6 % (11.7-14.2); RDW Standard Deviation 49.8 fL (35.1-46.3); Red Blood Cell Count 4.32 M/mm3 (4.30-5.90); White Blood Cell Count 11.63 K/mm3 (4.00-11.30)
[2018-12-05 04:16] LABS: Bun/Creatinine Ratio 14.8 (12.0-20.0); Calcium, Blood 7.7 mg/dL (8.5-10.1); Creatinine, Blood 1.49 mg/dL (0.60-1.20); Potassium, Blood 3.8 mmol/L (3.5-5.5)
--- NOTE | 2018-12-05 06:04 | NUR ---
SHIFT SUMMARY. NO ACUTE CHANGES NOTED THIS SHIFT, PT'S URINE IS CLEARING UP FROM THE CRANBERRY RED TO A DARK YELLOW WITH RED SEDIMENT. PT DENIES ANY CHEST PAIN/PRESSURE, N/V AND SOB. CALL LIGHT IN REACH, BED IS LOCKED AND LOW WITH BED ALARM ON, WILL CONTINUE TO MONITOR UNTIL REPORT IS GIVEN TO ONCOMING RN.
[2018-12-05] MEDS ORDERED: MIRALAX17 GM PO (14:10)
[2018-12-05] MEDS ORDERED: LOSA25 PO (14:10)
[2018-12-05] MEDS ORDERED: Senna Plus Tab1 EACH PO (14:11)
== END 2018-12-05 14:45 | disposition home or self-care (01) ==
LOC: ER 19:20 → PCU 19:21 → ER 23:11 → PCU 23:11
PROVIDERS: Emergency Medicine; Internal Medicine; Nurse Practitioner Acute Care; ADMIT Internal Medicine
DX: R55 Syncope and collapse (principal); I48.0 Paroxysmal atrial fibrillation; I35.0 Nonrheumatic aortic (valve) stenosis; R33.9 Retention of urine, unspecified; R79.89 Other specified abnormal findings of blood chemistry; I12.9 Hypertensive chronic kidney disease with stage 1 through stage 4 chronic kidney disease, or unspecified chronic kidney disease; J44.9 Chronic obstructive pulmonary disease, unspecified; N18.9 Chronic kidney disease, unspecified; Z85.46 Personal history of malignant neoplasm of prostate; Z95.0 Presence of cardiac pacemaker; Z79.01 Long term (current) use of anticoagulants; Z86.73 Personal history of transient ischemic attack (TIA), and cerebral infarction without residual deficits; Z79.899 Other long term (current) drug therapy; Z88.5 Allergy status to narcotic agent; Z87.891 Personal history of nicotine dependence; Z86.711 Personal history of pulmonary embolism; Z86.718 Personal history of other venous thrombosis and embolism
CPT/HCPCS: 36415; 36416; 51702; 51798; 71045; 74176; 80047; 80048; 80053; 81003; 82947; 83690; 83880; 84145; 84484; 85014; 85025; 85027; 93005; 93010; 93306; 94640; 94760; 96360; 96361; 97162; 97530; 99285-25; G0378; J7030; J7040

== ENCOUNTER 2019-02-23 16:45 | Inpatient (IN) | payer MEDICARE ==
[~2019-02-23] VITALS: Ht 177.8 cm; Wt 86.2 kg
[~2019-02-23 16:45] MED LIST changes: +LOSA25 PO; +MIRALAX17 GM PO; +Senna Plus Tab1 EACH PO
[2019-02-23 17:26] LABS: BASOPHILS ABSOLUTE AUTO 0.03 K/mm3 (0.00-0.23); BASOPHILS PERCENT AUTO 0 % (0-2); EOSINOPHILS ABSOLUTE AUTO 1.35 K/mm3 (0.00-0.68); EOSINOPHILS PERCENT AUTO 16 % (0-6); Hematocrit 42.1 % (37.0-53.0); Hemoglobin 13.1 g/dL (13.5-17.5); IMMATURE GRAN ABSOLUTE AUTO 0.02 K/mm3 (0.00-0.10); IMMATURE GRAN PERCENT AUTO 0 % (0-1); LYMPHOCYTES ABSOLUTE AUTO 1.79 K/mm3 (0.84-5.20); LYMPHOCYTES PERCENT AUTO 21 % (21-46); MONOCYTES ABSOLUTE AUTO 0.84 K/mm3 (0.16-1.47); MONOCYTES PERCENT AUTO 10 % (4-13); Mean Corpuscular HGB Conc 31.1 g/dL (31.5-36.5); Mean Corpuscular Volume 90 fL (80-100); Mean Platelet Volume 9.5 fL (9.1-12.4); NEUTROPHILS ABSOLUTE AUTO 4.39 K/mm3 (1.96-9.15); NEUTROPHILS PERCENT AUTO 52 % (41-73); Platelet Count 290 K/mm3 (150-400); RDW Coefficient Variation 14.6 % (11.7-14.2); Red Blood Cell Count 4.68 M/mm3 (4.30-5.90); White Blood Cell Count 8.42 K/mm3 (4.00-11.30)
[2019-02-23 17:58] LABS: Albumin, Blood 3.6 g/dL (3.4-5.0); Albumin/Globulin Ratio 0.9 (0.8-1.8); Bilirubin, Total 0.6 mg/dL (0.1-1.0); Calcium, Blood 9.8 mg/dL (8.5-10.1); Creatinine, Blood 1.55 mg/dL (0.60-1.20); Globulin, Blood 4.2 g/dL (2.2-4.0); Potassium, Blood 3.8 mmol/L (3.5-5.5); Total Protein, Blood 7.8 g/dL (6.4-8.2)
[2019-02-23] MEDS ORDERED: METO25ER PO (18:54)
[2019-02-23] MEDS ORDERED: Zantac150 MG PO (18:55)
[2019-02-23] MEDS ORDERED: XARELTO15 MG PO (18:55)
--- NOTE | 2019-02-23 23:09 | NUR ---
PT ARRIVED TO ROOM APPROX 2030. TELE WAS SHOWING A FIB IN THE 120'S. THEN HE PROCEEDED TO HAVE 6 EPISODES IN ONE HOUR AND 30 MIN, OF V TACH, 38 BEAT RUN, 65 BEAT RUN, 9, 24, 55, AND 9 BEAT RUN. THEN HIS RHYTHM WENT BACK INTO WHAT LOOKED LIKE 1ST DEGREE BLOCK INTO THE 118-120'S. NOTIFIED DR AYERS SHE ORDERED POTASSIUM PO 20 MEQ OT AND MAG, TSH LABS IN AM.
[2019-02-23 23:47] LABS: Adenovirus Not Detected (NOT DETECT); Bordetella pertussis Not Detected (NOT DETECT); Chlamydophila pneumoniae Not Detected (NOT DETECT); Coronavirus 229E Not Detected (NOT DETECT); Coronavirus HKU1 Not Detected (NOT DETECT); Coronavirus NL63 Not Detected (NOT DETECT); Coronavirus OC43 Not Detected (NOT DETECT); Human Metapneumovirus Not Detected (NOT DETECT); Human Rhinovirus/Enterovirus Not Detected (NOT DETECT); Influenza A Not Detected (NOT DETECT); Influenza A/2009-H1 Not Detected (NOT DETECT); Influenza A/H1 Not Detected (NOT DETECT); Influenza A/H3 Not Detected (NOT DETECT); Influenza B Not Detected (NOT DETECT); Mycoplasma pneumoniae Not Detected (NOT DETECT); Parainfluenza Virus 1 Not Detected (NOT DETECT); Parainfluenza Virus 2 Not Detected (NOT DETECT); Parainfluenza Virus 3 Not Detected (NOT DETECT); Parainfluenza Virus 4 Not Detected (NOT DETECT); Respiratory Syncytial Virus Not Detected (NOT DETECT)
--- NOTE | 2019-02-24 00:23 | NUR ---
PT CONTINUES TO HAVE HIGH RUNS OF V TACH. DENIES DIZZINESS OR OTHER SYMPTOMS. A TOTAL OF AT LEAST 15 DIFFERENT EPISODES OR EVENTS OF V TACH, ONE BEING 110 RUN OF V TACH. NOTIFIED DR MAJOR. HE ORDERED MAG LAB DRAW STAT AND IV MAG. HE CHANGED PT STATUS TO PCU. REPORT GIVEN TO JEFF CAMPOS.
--- NOTE | 2019-02-24 01:02 | NUR ---
ASSUMING CARE/ TRANSFER NOTE RECEIVED PT REPORT FROM BETH OROZCO ON MEDICAL FLOOR. PT IS PCU STATUS AND IS BEING TRANSFERED DUE TO MULTIPLE RUNS OF V-TACH. PER REPORT PT IS ASYMPTOMATIC THROUGH PERIODS OF V-TACH. PT ARRIVED TO THE UNIT AT APPROX 0026. PT ALERT AND ORIENTED AT THE TIME OF ARRIVAL TO UNIT. PT WAS PLACED ON ACIDIZER HELPER AT THE TIME OF ARRIVAL TO THE UNIT. PT WAS NOTED TO GO INTO A WIDE RHYTHM THAT APPEARED TO BE V-TACH SHORTLY AFTER BEING PLACED ON MONITOR. PT BP WAS NOTED TO INCREASE THROUGH EPISODE AND PT DENIED ANY SENSATION OF RACING HEART OR LIGHT HEADEDNESS. MONITOR SETTINGS WERE ADJUSTED TO CAPUTRE PACER SPIKES DUE TO PT HAVING A PACER AND A HX OF A-FIB. WITH ADJUSTMENT OF MONITOR TO CAPTURE PACER SPIKES IT WAS FOUND THAT THROUGH EPISODES OF WIDENED RHYTHM PT WAS 100% PACED. LAB RESULT FOR MAGNESIUM DRAW WAS RECEIVED WITH A RESULT OF 2.4, ORDERED MAGNESIUM HELD. DR MAJOR WAS CALLED AND INFORMED OF PT'S PACED RHYTHM AND MAGNESIUM LEVEL. ORDER RECEIVED TO DC ORDERED MAGNESIUM AND TO CHANGE PT TO MEDICAL STATUS. MEDICAL FLOOR NURSE CALLED AND INFORMED OF PT STATUS CHANGE. UPDATE GIVEN. PT WAS TRANSFERED TO MEDICAL ROOM 301 AT APPROX 0110. PT TRANSFERED WITH ALL BELONGINGS.
--- NOTE | 2019-02-24 03:03 | NUR ---
PT TRANSFERRED BACK TO 301, V TACH READING PER TELE WAS REALLY A PACER SPIKE AND HE WAS RUNNING A FIB NOT THE V TACH.
[2019-02-24 05:13] LABS: Bun/Creatinine Ratio 11.6 (12.0-20.0); Calcium, Blood 10.1 mg/dL (8.5-10.1); Creatinine, Blood 1.55 mg/dL (0.60-1.20); Potassium, Blood 4.4 mmol/L (3.5-5.5)
[2019-02-24 05:16] LABS: Thyroid Stimulating Hormone 0.952 uIU/mL (0.360-4.800)
--- NOTE | 2019-02-24 05:55 | NUR ---
SHIFT SUMMARY PT A/O. TELE SHOWING NSR C 1ST DEGREE BLOCK AND OCC A FIB @ 86-90'S PER DIESEL ENGINE MECHANIC APPRENTICE. RA C WHEEZY BREATH SOUNDS. SBA C WALKER. HE WAS ABLE TO SLEEP ON AND OFF T/O NIGHT. CALL LIGHT IN REACH.
--- NOTE | 2019-02-24 17:22 | NUR ---
SHIFT SUMMARY THE PATIENT PRESENTED THIS SHIFT A&O X4. WITH VITALS WNL AND WITH LUNG SOUNDS THAT WERE INSPIRATORY WHEEZE AND DIMINISHED AT THE BASES. THE PATIENT IS ON TELE, SR AT 79, WITH A FIRST DEGREE BLOCK. THE PATIENT HAS BEEN UP TO HIS CHAIR OR WALKING AROUND THE HALLS WITH HIS WALKER. THE PATIENT'S FAMILY HAS VISITED THIS SHIFT AND IS VISITING AT THIS TIME. WILL CONTINUE TO MONITOR.
--- NOTE | 2019-02-25 01:22 | NUR ---
NEW CONFUSION AT APPROXIMATELY 2340 TONIGHT PT CAME OUT OF HIS ROOM WITH A CONFUSED LOOK ON HIS FACE. PT STATED THAT HE WAS UNSURE OF WHERE HE WAS AND WANTED TO KNOW WHAT WAS GOING ON. THIS RN REMINDED PT THAT HE WAS AT THE HOSPITAL IN [place] AND HAD BEEN HERE SINCE YESTERDAY. PT WAS STILL A UNSURE OF HIS CURRENT SITUATION. VITALS SIGNS WERE STABLE AT THIS TIME AND NEURO CHECK SHOWED NO ACUTE CHANGES ASIDE FROM PT FORGETTING WHERE HE WAS. PT KNEW HIS NAME, BIRTHDAY, THE PRESIDENT, AND KNEW HE WAS IN [place] BUT WASN'T SURE WHERE HE WAS EXACTLY. PT STARTED TO REMEMBER MORE DETAILS THIS RN HELPED REORIENT HIM. REMEMBERED THAT HE CAME TO THE HOSPITAL BECAUSE HE WAS HAVING TROUBLES BREATHING. PT RESTING IN BED NOW IS NO APPARENT DISTRESS. BED ALARM ON FOR SAFETY. BAGGAGE SECURITY CHECKER WAS CALLED AND NO ACUTE CHANGES REPORTED. WILL CONTINUE TO MONITOR.
--- NOTE | 2019-02-25 05:41 | NUR ---
ROUSTABOUT HEAD SUMMARY PT AAOX3. CONFUSED AT ONE POINT RIGHT AFTER WAKING UP, SEE PREVIOUS NOTE. PT NOW APPEARS BACK AT BASELINE MENTATION. CONTINUED ON Q6H SOLUMEDROL. LUNGS STILL WHEEZY BUT PT DENIES DIFFICULTY BREATHING. PT HAS BEEN ON ROOM AIR THROUGH THE NIGHT WITH O2 SATS MAINTAINING >90%. NO COMPLAINTS. VSS, WILL CONTINUE TO MONITOR.
[2019-02-25 10:53] LABS: PCO2 Arterial 34.4 mmHg (35-45); PO2 Arterial 64.5 mmHg (80-100); pH Blood Arterial 7.42 (7.35-7.45)
[2019-02-25] MEDS ORDERED: PRED20 PO (12:46)
--- NOTE | 2019-02-25 13:14 | NUR ---
PATIENT DISCHARGE THE PATIENT WAS DISCHARGED HOME WITH HIS SPOUSE, AFTER DISCHARGE INSTRUCTIONS WERE GIVEN TO THE PATIENT. THE PATIENT WAS INSTRUCTED TO FOLLOW UP WITH HIS PCP AT THE APPOINTED TIME AND TO TAKE HIS MEDICATIONS DIRECTED. THE PATIENT LEFT THE HOSPITAL WOTHOUT CONCERN OR COMPLAINT.
== END 2019-02-25 13:01 | disposition home or self-care (01) | DRG 189 ==
LOC: ER 16:45 → MEDS 16:46 → ICUE 02-24 00:22 → MEDS 02-24 01:10 → ENPENDDIS 02-25 12:51 → MEDS 02-25 13:01
PROVIDERS: Emergency Medicine; ADMIT Internal Medicine
DX: J96.01 Acute respiratory failure with hypoxia (principal); J44.1 Chronic obstructive pulmonary disease with (acute) exacerbation; F03.90 Unspecified dementia, unspecified severity, without behavioral disturbance, psychotic disturbance, mood disturbance, and anxiety; I12.9 Hypertensive chronic kidney disease with stage 1 through stage 4 chronic kidney disease, or unspecified chronic kidney disease; N18.3 Chronic kidney disease, stage 3 (moderate); I48.0 Paroxysmal atrial fibrillation; R33.9 Retention of urine, unspecified; I35.0 Nonrheumatic aortic (valve) stenosis; Z86.718 Personal history of other venous thrombosis and embolism; I44.30 Unspecified atrioventricular block; Z79.01 Long term (current) use of anticoagulants; Z86.711 Personal history of pulmonary embolism; Z85.46 Personal history of malignant neoplasm of prostate; Z86.73 Personal history of transient ischemic attack (TIA), and cerebral infarction without residual deficits; Z95.0 Presence of cardiac pacemaker; Z87.891 Personal history of nicotine dependence
CPT/HCPCS: 36415; 36600; 71046; 80048; 80053; 82803; 83735; 84443; 85025; 87486; 87581; 87633; 87798; 93005; 93010; 94640; 94760; 96374; 96376; 97162; 97166; 97530; 97535; 99285-25; C9113; G0378; J2930

== ENCOUNTER 2019-04-28 17:26 | Emergency (ER) | payer MEDICARE, OTHER ==
[~2019-04-28] VITALS: Ht 152.4 cm; Wt 90.7 kg
[~2019-04-28 17:26] MED LIST changes: -ALBU3IS INH; +ALBU3IS NEB; +BREO ELLIPTA 21 EACH INH; +METO25ER PO; +PRED20 PO; +Zantac150 MG PO
[2019-04-28] MEDS ORDERED: TAMS.4ER PO (20:26)
[2019-04-28] MEDS ORDERED: BREO ELLIPTA 21 EACH INH (20:26)
[2019-04-28] MEDS ORDERED: DOCU100 PO (20:26)
[2019-04-28] MEDS ORDERED: COMBIVENT RESPIM4 GM INH (20:27)
[2019-04-28] MEDS ORDERED: ALBU90OI6 INH (20:28)
[2019-04-28] MEDS ORDERED: Toprol Xl25 MG PO (20:29)
[2019-04-28] MEDS ORDERED: Zantac150 MG PO (20:29)
[2019-04-28] MEDS ORDERED: XARELTO15 MG PO (20:29)
[2019-04-28 20:58] LABS: Bun/Creatinine Ratio 15.4 (12.0-20.0); Calcium, Blood 10.2 mg/dL (8.5-10.1); Creatinine, Blood 1.56 mg/dL (0.60-1.20); Potassium, Blood 4.1 mmol/L (3.5-5.5)
== END 2019-04-28 22:32 | disposition home or self-care (01) ==
LOC: ER 17:26
PROVIDERS: Emergency Medicine
DX: I10 Essential (primary) hypertension (principal); M79.89 Other specified soft tissue disorders; Z88.5 Allergy status to narcotic agent; Z79.899 Other long term (current) drug therapy; E78.5 Hyperlipidemia, unspecified; I48.91 Unspecified atrial fibrillation; R60.0 Localized edema; K21.9 Gastro-esophageal reflux disease without esophagitis; J44.9 Chronic obstructive pulmonary disease, unspecified; Z87.891 Personal history of nicotine dependence
CPT/HCPCS: 36415; 80048; 93005; 93010; 93971; 99284-25

== ENCOUNTER → 2019-07-28 | Outpatient (CLI) | payer MEDICARE, OTHER ==
[~2019-07-28] MED LIST changes: +ALBU2.5V5 INH; +ALBU90OI6 INH; +COMBIVENT RESPIM4 GM INH; +DOCU100 PO; +Toprol Xl25 MG PO
[2019-07-28 19:12] LABS: BASOPHILS ABSOLUTE AUTO 0.04 K/mm3 (0.00-0.23); BASOPHILS PERCENT AUTO 0 % (0-2); EOSINOPHILS PERCENT AUTO 3 % (0-6); Hematocrit 48.5 % (37.0-53.0); Hemoglobin 15.2 g/dL (13.5-17.5); IMMATURE GRAN ABSOLUTE AUTO 0.04 K/mm3 (0.00-0.10); IMMATURE GRAN PERCENT AUTO 0 % (0-1); LYMPHOCYTES ABSOLUTE AUTO 2.19 K/mm3 (0.84-5.20); LYMPHOCYTES PERCENT AUTO 24 % (21-46); MONOCYTES ABSOLUTE AUTO 0.96 K/mm3 (0.16-1.47); MONOCYTES PERCENT AUTO 10 % (4-13); Mean Corpuscular HGB 29.1 pg (26.0-34.0); Mean Corpuscular HGB Conc 31.3 g/dL (31.5-36.5); Mean Corpuscular Volume 93 fL (80-100); Mean Platelet Volume 11.9 fL (9.1-12.4); NEUTROPHILS ABSOLUTE AUTO 5.73 K/mm3 (1.96-9.15); NEUTROPHILS PERCENT AUTO 62 % (41-73); Platelet Count 221 K/mm3 (150-400); RDW Coefficient Variation 14.2 % (11.7-14.2); RDW Standard Deviation 48.8 fL (35.1-46.3); Red Blood Cell Count 5.22 M/mm3 (4.30-5.90); White Blood Cell Count 9.26 K/mm3 (4.00-11.30)
[2019-07-28 20:02] LABS: Albumin, Blood 3.6 g/dL (3.4-5.0); Bilirubin, Total 1.4 mg/dL (0.1-1.0); Bun/Creatinine Ratio 15.8 (12.0-20.0); Calcium, Blood 9.2 mg/dL (8.5-10.1); Creatinine, Blood 1.71 mg/dL (0.60-1.20); Globulin, Blood 3.5 g/dL (2.2-4.0); Potassium, Blood 4.1 mmol/L (3.5-5.5); Total Protein, Blood 7.1 g/dL (6.4-8.2)
== END | disposition home or self-care (01) ==
LOC: LAB SHORT 18:48 → LAB 18:48
PROVIDERS: Nurse Practitioner Family
DX: F03.90 Unspecified dementia, unspecified severity, without behavioral disturbance, psychotic disturbance, mood disturbance, and anxiety (principal)
CPT/HCPCS: 80053; 85025; 86592

== ENCOUNTER 2019-08-04 11:45 | Emergency (ER) | payer MEDICARE, OTHER ==
[~2019-08-04] VITALS: Ht 175.3 cm; Wt 81.7 kg
[~2019-08-04 11:45] MED LIST changes: -ALBU2.5V5 INH
[2019-08-04] MEDS ORDERED: ALBU2.5V5 INH (12:27)
[2019-08-04 13:35] LABS: BASOPHILS ABSOLUTE AUTO 0.04 K/mm3 (0.00-0.23); BASOPHILS PERCENT AUTO 0 % (0-2); EOSINOPHILS ABSOLUTE AUTO 0.12 K/mm3 (0.00-0.68); EOSINOPHILS PERCENT AUTO 1 % (0-6); Hematocrit 47.1 % (37.0-53.0); Hemoglobin 14.9 g/dL (13.5-17.5); IMMATURE GRAN ABSOLUTE AUTO 0.04 K/mm3 (0.00-0.10); IMMATURE GRAN PERCENT AUTO 0 % (0-1); LYMPHOCYTES ABSOLUTE AUTO 1.34 K/mm3 (0.84-5.20); LYMPHOCYTES PERCENT AUTO 11 % (21-46); MONOCYTES ABSOLUTE AUTO 0.78 K/mm3 (0.16-1.47); MONOCYTES PERCENT AUTO 7 % (4-13); Mean Corpuscular HGB 29.2 pg (26.0-34.0); Mean Corpuscular HGB Conc 31.6 g/dL (31.5-36.5); Mean Corpuscular Volume 92 fL (80-100); Mean Platelet Volume 10.5 fL (9.1-12.4); NEUTROPHILS ABSOLUTE AUTO 9.46 K/mm3 (1.96-9.15); NEUTROPHILS PERCENT AUTO 80 % (41-73); Platelet Count 245 K/mm3 (150-400); RDW Standard Deviation 47.8 fL (35.1-46.3); Red Blood Cell Count 5.11 M/mm3 (4.30-5.90); White Blood Cell Count 11.78 K/mm3 (4.00-11.30)
[2019-08-04 13:55] LABS: International Normalized Ratio 1.16; Prothrombin Time Results 12.1 Sec (9.7-11.5)
[2019-08-04 13:59] LABS: Albumin, Blood 3.5 g/dL (3.4-5.0); Albumin/Globulin Ratio 0.9 (0.8-1.8); Bilirubin, Total 1.1 mg/dL (0.1-1.0); Bun/Creatinine Ratio 17.3 (12.0-20.0); Calcium, Blood 9.2 mg/dL (8.5-10.1); Creatinine, Blood 1.97 mg/dL (0.60-1.20); Globulin, Blood 3.9 g/dL (2.2-4.0); Magnesium, Blood 2.7 mg/dL (1.6-2.4); Total Protein, Blood 7.4 g/dL (6.4-8.2)
== END 2019-08-04 14:42 | disposition home or self-care (01) ==
LOC: ER 11:45
PROVIDERS: Emergency Medicine
DX: R55 Syncope and collapse (principal); Z88.5 Allergy status to narcotic agent; Z79.899 Other long term (current) drug therapy; J44.9 Chronic obstructive pulmonary disease, unspecified; K21.9 Gastro-esophageal reflux disease without esophagitis; I12.9 Hypertensive chronic kidney disease with stage 1 through stage 4 chronic kidney disease, or unspecified chronic kidney disease; N18.3 Chronic kidney disease, stage 3 (moderate); I48.91 Unspecified atrial fibrillation; E78.5 Hyperlipidemia, unspecified; Z87.891 Personal history of nicotine dependence; Z85.46 Personal history of malignant neoplasm of prostate
CPT/HCPCS: 36415; 70450; 72125; 80053; 83735; 85025; 85610; 85730; 93005; 93010; 99285-25

== ENCOUNTER → 2019-09-03 | Outpatient (CLI) | payer MEDICARE, OTHER ==
[~2019-09-03] MED LIST changes: +ALBU2.5V5 INH
[2019-09-03 19:29] LABS: BASOPHILS ABSOLUTE AUTO 0.03 K/mm3 (0.00-0.23); BASOPHILS PERCENT AUTO 0 % (0-2); EOSINOPHILS ABSOLUTE AUTO 0.24 K/mm3 (0.00-0.68); EOSINOPHILS PERCENT AUTO 3 % (0-6); Hematocrit 45.7 % (37.0-53.0); Hemoglobin 14.5 g/dL (13.5-17.5); IMMATURE GRAN ABSOLUTE AUTO 0.01 K/mm3 (0.00-0.10); IMMATURE GRAN PERCENT AUTO 0 % (0-1); LYMPHOCYTES ABSOLUTE AUTO 1.92 K/mm3 (0.84-5.20); LYMPHOCYTES PERCENT AUTO 24 % (21-46); MONOCYTES ABSOLUTE AUTO 0.79 K/mm3 (0.16-1.47); MONOCYTES PERCENT AUTO 10 % (4-13); Mean Corpuscular HGB 28.7 pg (26.0-34.0); Mean Corpuscular HGB Conc 31.7 g/dL (31.5-36.5); Mean Corpuscular Volume 90 fL (80-100); Mean Platelet Volume 11.9 fL (9.1-12.4); NEUTROPHILS ABSOLUTE AUTO 4.99 K/mm3 (1.96-9.15); NEUTROPHILS PERCENT AUTO 63 % (41-73); Platelet Count 212 K/mm3 (150-400); RDW Coefficient Variation 14.4 % (11.7-14.2); RDW Standard Deviation 47.7 fL (35.1-46.3); Red Blood Cell Count 5.06 M/mm3 (4.30-5.90); White Blood Cell Count 7.98 K/mm3 (4.00-11.30)
[2019-09-03 21:03] LABS: Albumin, Blood 3.6 g/dL (3.4-5.0); Bilirubin, Total 1.3 mg/dL (0.1-1.0); Bun/Creatinine Ratio 16.6 (12.0-20.0); Calcium, Blood 9.7 mg/dL (8.5-10.1); Creatinine, Blood 1.69 mg/dL (0.60-1.20); Globulin, Blood 3.5 g/dL (2.2-4.0); Thyroid Stimulating Hormone 2.55 uIU/mL (0.360-4.800); Total Protein, Blood 7.1 g/dL (6.4-8.2)
== END | disposition home or self-care (01) ==
LOC: LAB SHORT 18:26 → LAB 18:26
PROVIDERS: Nurse Practitioner Family
DX: F03.90 Unspecified dementia, unspecified severity, without behavioral disturbance, psychotic disturbance, mood disturbance, and anxiety (principal); E55.9 Vitamin D deficiency, unspecified; N18.9 Chronic kidney disease, unspecified
CPT/HCPCS: 80053; 82306; 82607; 82746; 84443; 85025